=== PATIENT | female | born 1970 | race Caucasian/White ===

== ENCOUNTER 2019-04-12 13:03 | Emergency (ER) | payer MEDICAID ==
[~2019-04-12] VITALS: Ht 152.4 cm; Wt 48.1 kg
[2019-04-12 13:05] VITALS: Ht 152.4 cm; Wt 48.1 kg
[2019-04-12 14:25] LABS: BASOPHIL % 0.1 % (0-2); PLATELET COUNT 263 x10^3mcL (130-400)
[2019-04-12 14:29] LABS: CALCIUM 8.4 mg/dL (8.5-10.1); CARBON DIOXIDE 26.6 mmol/L (21-32); CHLORIDE SERUM 105 mmol/L (98-107); CREATININE SERUM 0.7 mg/dL (0.6-1.0); GFR1 > 60 mL/min; GLUCOSE SERUM 91 mg/dL (74-106); POTASSIUM SERUM 4.1 mmol/L (3.5-5.1); SODIUM SERUM 141 mmol/L (136-145)
[2019-04-12 14:33] LABS: ALBUMIN 3.7 g/dL (3.4-5.0); ALKALINE PHOSPHATASE 66 U/L (46-116); ALT/SGPT 14 U/L (14-59); AST/SGOT 14 U/L (15-37); BILIRUBIN TOTAL 0.2 mg/dL (0.20-1.00); TOTAL PROTEIN, SERUM 7.6 g/dL (6.4-8.2)
[2019-04-12 16:23] VITALS: BP 97/58
== END 2019-04-12 16:23 | disposition home or self-care (01) ==
LOC: ED 13:03
PROVIDERS: Emergency Medicine
DX: R42 Dizziness and giddiness (principal); E78.00 Pure hypercholesterolemia, unspecified; F32.9 Major depressive disorder, single episode, unspecified
CPT/HCPCS: J2765; J7030; J8597